=== PATIENT | female | born 1965 | race Caucasian/White ===

== ENCOUNTER 2021-11-10 17:29 | Inpatient (IN) | payer MEDICAID, OTHER ==
[~2021-11-10] VITALS: Ht 165.1 cm; Wt 68.3 kg
[2021-11-10] MEDS ORDERED: SODIUM CHLORIDE 0.9% 500 ML IV ONE (17:45)
[2021-11-10] MEDS ORDERED: ASPirin 325 MG TAB PO ONE (18:15)
[2021-11-10 18:22] LABS: Basophils # (auto) 0.1 10 ^3/uL (0-0.2); Basophils % (auto) 1.8 % (0.0-2.0); Eosinophils # (auto) 0.3 10 ^3/uL (0-0.8); Eosinophils % (auto) 3.8 % (0.0-7.0); Hematocrit 36.7 % (36.0-46.0); Lymphocytes # (auto) 2.9 10 ^3/uL (0.4-5.4); Lymphocytes % (auto) 42.2 % (10.0-50.0); Mean Corpuscular Hemoglobin 31.2 pg (28.0-32.0); Mean Corpuscular Hgb Conc. 35.4 g/dL (32.0-36.0); Mean Corpuscular Volume 88.1 fL (80.0-100.0); Monocytes # (auto) 0.3 10 ^3/uL (0-1.3); Monocytes % (auto) 4.9 % (0.0-12.0); Neutrophils # (auto) 3.2 10 ^3/uL (1.6-8.6); Neutrophils % (auto) 47.3 % (37.0-80.0); Nucleated Red Blood Cells % 0.1 %; Red Blood Cells 4.17 10^6/uL (4.0-5.20); Red Cell Distribution Width 13.6 % (11.8-14.3); White Blood Cell 6.8 10^3/uL (4.4-10.8)
[2021-11-10] MEDS ORDERED: NITROGLYCERIN 0.4 MG SL TAB SL ONE (18:33)
[2021-11-10 18:46] LABS: Albumin 3.6 g/dL (3.4-5.0); Calcium 8.5 mg/dL (8.5-10.1); Potassium 3.5 mmol/L (3.5-5.1)
[2021-11-10 18:50] LABS: BUN/Creatinine Ratio 13.5; Bilirubin, Total 0.4 mg/dL (0.2-1.0); Total Protein 7.5 g/dL (6.4-8.2)
[2021-11-10 19:06] LABS: Urine Bacteria NONE SEEN /hpf (None Seen); Urine Blood Negative /uL (Negative); Urine Specific Gravity 1.002 (1.001-1.035); Urine WBC 4 /hpf (0 - 5)
[2021-11-10] MEDS ORDERED: NITROGLYCERIN 0.4 MG SL TAB SL PRN (21:30)
[2021-11-10] MEDS ORDERED: MORPHINE SULFATE INJ 2 MG/ml SYRG IV PRN ×2 (21:30)
[2021-11-10] MEDS ORDERED: ONDANSETRON HCL 4 MG/2 ML VIAL IV PRN (21:30)
[2021-11-10] MEDS ORDERED: DOCUSATE SOD 100 MG CAP PO PRN (21:30)
[2021-11-10] MEDS ORDERED: ACETAMINOPHEN 325 MG TAB PO PRN (21:30)
[2021-11-10] MEDS: ASCORBIC ACID 500 MG TAB PO SCH (22:00)
[2021-11-10 23:50] VITALS: BP 140/62
[2021-11-10 23:55] VITALS: BP 140/62
[2021-11-11 05:00] VITALS: BP 114/46
[2021-11-11 05:53] LABS: Albumin 3.4 g/dL (3.4-5.0); BUN/Creatinine Ratio 17.2; Calcium 8.7 mg/dL (8.5-10.1); Potassium 3.7 mmol/L (3.5-5.1)
[2021-11-11 05:55] LABS: Basophils # (auto) 0 10 ^3/uL (0-0.2); Basophils % (auto) 0.4 % (0.0-2.0); Eosinophils # (auto) 0.3 10 ^3/uL (0-0.8); Eosinophils % (auto) 5.1 % (0.0-7.0); Hematocrit 35.8 % (36.0-46.0); Hemoglobin 12.5 g/dL (12.2-16.2); Lymphocytes # (auto) 2.5 10 ^3/uL (0.4-5.4); Lymphocytes % (auto) 41.5 % (10.0-50.0); Mean Corpuscular Hemoglobin 30.7 pg (28.0-32.0); Mean Corpuscular Hgb Conc. 34.9 g/dL (32.0-36.0); Mean Corpuscular Volume 88.2 fL (80.0-100.0); Monocytes # (auto) 0.5 10 ^3/uL (0-1.3); Monocytes % (auto) 8.4 % (0.0-12.0); Neutrophils # (auto) 2.7 10 ^3/uL (1.6-8.6); Neutrophils % (auto) 44.6 % (37.0-80.0); Nucleated Red Blood Cells % 0.1 %; Red Blood Cells 4.05 10^6/uL (4.0-5.20); Red Cell Distribution Width 13.7 % (11.8-14.3)
[2021-11-11 06:04] LABS: Bilirubin, Total 0.5 mg/dL (0.2-1.0); Total Protein 6.6 g/dL (6.4-8.2)
[2021-11-11] MEDS ORDERED: ADENOSINE 57 MG in GIVE UN-DILUTED 0 ML IV ONE (08:45)
[2021-11-11 09:00] VITALS: BP 119/44
[2021-11-11 09:07] LABS: Amphetamine Screen, Urine NEGATIVE (NEGATIVE); Barbiturate Scree,Urine NEGATIVE (NEGATIVE); Benzodiazephine Screen, Urine NEGATIVE (NEGATIVE); Cannabinoid Screen, Urine NEGATIVE (NEGATIVE); Cocaine Screen, Urine NEGATIVE (NEGATIVE); Opiate Scree,Urine NEGATIVE (NEGATIVE); Phencyclidine Screen, Urine NEGATIVE (NEGATIVE)
[2021-11-11] MEDS: MULTIPLE VITAMIN TAB PO SCH (09:30)
[2021-11-11] MEDS: ENOXAPARIN SOD 40 MG/0.4 ML SYRINGE SC SCH (09:30)
[2021-11-11] MEDS: ZINC SULFATE 220mg CAP or TAB PO SCH (09:30)
[2021-11-11] MEDS: ASCORBIC ACID 500 MG TAB PO SCH ×2 (09:30→21:23)
[2021-11-11] MEDS ORDERED: NITROGLYCERIN 0.4 MG SL TAB SL ONE (10:00)
[2021-11-11 13:00] VITALS: BP 122/52
[2021-11-11] MEDS: cefTRIAXone 1GM/50ML D5W 50 ML IV SCH (13:15)
[2021-11-11] MEDS: SODIUM CHLORIDE 0.9% 1,000 ML IV SCH ×2 (13:50→17:45)
[2021-11-11 17:00] VITALS: BP 129/78
[2021-11-11] MEDS: HYDROcodone-ACET 5/325MG TAB PO PRN (21:23)
[2021-11-11 21:45] VITALS: BP 157/82
[2021-11-12] MEDS: SODIUM CHLORIDE 0.9% 1,000 ML IV SCH ×2 (01:48→17:36)
[2021-11-12 04:44] VITALS: BP 123/80
[2021-11-12 09:00] VITALS: BP 115/65
[2021-11-12] MEDS: cefTRIAXone 1GM/50ML D5W 50 ML IV SCH (09:08)
[2021-11-12] MEDS: ZINC SULFATE 220mg CAP or TAB PO SCH (09:08)
[2021-11-12] MEDS: ENOXAPARIN SOD 40 MG/0.4 ML SYRINGE SC SCH (09:09)
[2021-11-12] MEDS: ASCORBIC ACID 500 MG TAB PO SCH ×2 (09:09→22:01)
[2021-11-12] MEDS: MULTIPLE VITAMIN TAB PO SCH (09:09)
[2021-11-12] MEDS: HYDROcodone-ACET 5/325MG TAB PO PRN ×3 (09:21→17:31)
[2021-11-12] MEDS ORDERED: LORazepam 2MG/ML-1ML VIAL IV ONE (11:00)
[2021-11-12 13:00] VITALS: BP 129/60
[2021-11-12 17:05] VITALS: BP 124/69
[2021-11-12] MEDS: LORazepam 2MG/ML-1ML VIAL IV PRN (18:15)
[2021-11-12 22:00] VITALS: BP 117/75
[2021-11-13] MEDS: HYDROcodone-ACET 5/325MG TAB PO PRN ×3 (01:46→22:41)
[2021-11-13] MEDS: SODIUM CHLORIDE 0.9% 1,000 ML IV SCH ×3 (01:58→17:41)
[2021-11-13 05:00] VITALS: BP 101/62
[2021-11-13 09:00] VITALS: BP 112/66
[2021-11-13] MEDS: MULTIPLE VITAMIN TAB PO SCH (09:19)
[2021-11-13] MEDS: cefTRIAXone 1GM/50ML D5W 50 ML IV SCH (09:19)
[2021-11-13] MEDS: ASCORBIC ACID 500 MG TAB PO SCH ×2 (09:19→22:40)
[2021-11-13] MEDS: ZINC SULFATE 220mg CAP or TAB PO SCH (09:19)
[2021-11-13] MEDS: ENOXAPARIN SOD 40 MG/0.4 ML SYRINGE SC SCH (09:20)
[2021-11-13 13:00] VITALS: BP 128/47
[2021-11-13] MEDS: LORazepam 2MG/ML-1ML VIAL IV PRN ×2 (14:24→22:41)
[2021-11-13 16:51] VITALS: BP 92/42
[2021-11-13 22:00] VITALS: BP 132/57
[2021-11-14] VITALS (8 sets, daily range): BP systolic 104–130; BP diastolic 38–84
[2021-11-14] MEDS: SODIUM CHLORIDE 0.9% 1,000 ML IV SCH ×3 (02:50→17:45)
[2021-11-14 07:09] LABS: Basophils # (auto) 0 10 ^3/uL (0-0.2); Basophils % (auto) 0.4 % (0.0-2.0); Eosinophils # (auto) 0.4 10 ^3/uL (0-0.8); Eosinophils % (auto) 6.4 % (0.0-7.0); Hematocrit 36.5 % (36.0-46.0); Lymphocytes # (auto) 2.3 10 ^3/uL (0.4-5.4); Mean Corpuscular Hgb Conc. 35.6 g/dL (32.0-36.0); Mean Corpuscular Volume 87.1 fL (80.0-100.0); Monocytes # (auto) 0.4 10 ^3/uL (0-1.3); Neutrophils # (auto) 2.5 10 ^3/uL (1.6-8.6); Neutrophils % (auto) 45.2 % (37.0-80.0); Nucleated Red Blood Cells % 0.1 %; Red Blood Cells 4.19 10^6/uL (4.0-5.20); Red Cell Distribution Width 13.6 % (11.8-14.3); White Blood Cell 5.6 10^3/uL (4.4-10.8)
[2021-11-14 07:32] LABS: INR 1.02 (0.9-1.15); Partial Thromboplastin Time 28.8 sec (23.6-33.0)
[2021-11-14 07:41] LABS: Calcium 8.8 mg/dL (8.5-10.1); Potassium 3.9 mmol/L (3.5-5.1)
[2021-11-14 07:44] LABS: BUN/Creatinine Ratio 25.4
[2021-11-14] MEDS: cefTRIAXone 1GM/50ML D5W 50 ML IV SCH (09:00)
[2021-11-14] MEDS ORDERED: IODIXANOL 320MG/ML 100ML BTL IV ONE (09:38)
[2021-11-14] MEDS ORDERED: LIDOCAINE 2%HCL (LOCAL ANESTH.) INJ 10ml MDV ONE (09:38)
[2021-11-14] MEDS ORDERED: HEPARIN SODIUM (PORCINE) 5000 UNITS/ML 1ML VIAL ONE (09:43)
[2021-11-14] MEDS ORDERED: ANGIOMAX 250 MG VIAL IV ONE (09:43)
[2021-11-14] MEDS ORDERED: MIDAZOLAM HCL 2MG/2ML 2ml VIAL (1mg/ml) ONE (09:44)
[2021-11-14] MEDS ORDERED: VERAPAMIL 2.5MG/ML INJ 2ML VIAL IV ONE (09:44)
[2021-11-14] MEDS ORDERED: fentaNYL CITRATE 100 MCG/2 ML VL ONE (09:44)
[2021-11-14] MEDS ORDERED: SODIUM CHL 0.9% 0 ML ONE (09:44)
[2021-11-14] MEDS: ENOXAPARIN SOD 40 MG/0.4 ML SYRINGE SC SCH (10:00)
[2021-11-14] MEDS: MULTIPLE VITAMIN TAB PO SCH (10:00)
[2021-11-14] MEDS: ZINC SULFATE 220mg CAP or TAB PO SCH (10:00)
[2021-11-14] MEDS: ASCORBIC ACID 500 MG TAB PO SCH ×2 (10:00→21:31)
[2021-11-14] MEDS ORDERED: diphenhdrAMINE HCL 50 MG/1 ML VL ONE (10:37)
[2021-11-14] MEDS: SODIUM CHLOR 0.9% PF (SALINE LOCK) 10ML VIAL/SYR IV SCH ×2 (14:00→21:31)
[2021-11-14] MEDS ORDERED: KETOROLAC TROMETH 30 MG/ML 1ML VIAL IV ONE (15:15)
[2021-11-14] MEDS ORDERED: PROMETHAZINE HCL 25 MG/ML 1ML IV ONE (16:15)
[2021-11-14] MEDS: LORazepam 2MG/ML-1ML VIAL IV PRN (20:15)
[2021-11-14] MEDS: RANOLAZINE ER 500 MG TAB PO SCH (21:31)
[2021-11-15] MEDS: SODIUM CHLORIDE 0.9% 1,000 ML IV SCH ×3 (03:14→17:45)
[2021-11-15 05:00] VITALS: BP 107/65
[2021-11-15] MEDS: SODIUM CHLOR 0.9% PF (SALINE LOCK) 10ML VIAL/SYR IV SCH ×2 (06:00→14:00)
[2021-11-15 09:00] VITALS: BP 114/52
[2021-11-15] MEDS ORDERED: SIMV-8 PO (09:56)
[2021-11-15] MEDS ORDERED: ISO20T PO (09:59)
[2021-11-15] MEDS ORDERED: ALPR0.25 PO (09:59)
[2021-11-15] MEDS ORDERED: HYDR-4902 PO (09:59)
[2021-11-15] MEDS ORDERED: ISOSORBIDE MONONITRATE 20 MG TAB PO SCH (10:00)
[2021-11-15] MEDS: RANOLAZINE ER 500 MG TAB PO SCH (11:08)
[2021-11-15] MEDS: ZINC SULFATE 220mg CAP or TAB PO SCH (11:08)
[2021-11-15] MEDS: MULTIPLE VITAMIN TAB PO SCH (11:08)
[2021-11-15] MEDS: cefTRIAXone 1GM/50ML D5W 50 ML IV SCH (11:08)
[2021-11-15] MEDS: ENOXAPARIN SOD 40 MG/0.4 ML SYRINGE SC SCH (11:09)
[2021-11-15] MEDS: ASCORBIC ACID 500 MG TAB PO SCH (11:09)
[2021-11-15 12:54] VITALS: BP 99/54
[2021-11-15] MEDS: LORazepam 2MG/ML-1ML VIAL IV PRN (14:10)
[2021-11-15 17:00] VITALS: BP 95/47
[2021-11-15 19:24] VITALS: BP 110/63
[2021-11-15 20:30] VITALS: BP 108/64
== END 2021-11-15 20:55 | disposition home or self-care (01) | DRG 191 ==
LOC: ER 17:29 → EDBD 17:29 → TELE 21:24 → TELE-CENTR 23:19 → OBSVTOIN 11-11 10:43
PROVIDERS: ADMIT Internal Medicine; ATTEND Internal Medicine
PROC: 4A023N7 Measurement of Cardiac Sampling and Pressure, Left Heart, Percutaneous Approach (ICD-10-PCS; principal; 2021-11-14)
PROC: B211YZZ Fluoroscopy of Multiple Coronary Arteries using Other Contrast (ICD-10-PCS; 2021-11-14)
PROC: B215YZZ Fluoroscopy of Left Heart using Other Contrast (ICD-10-PCS; 2021-11-14)
DX: I20.1 Angina pectoris with documented spasm (principal); I11.0 Hypertensive heart disease with heart failure; I50.32 Chronic diastolic (congestive) heart failure; E78.5 Hyperlipidemia, unspecified; N39.0 Urinary tract infection, site not specified; F10.129 Alcohol abuse with intoxication, unspecified; Z20.822 Contact with and (suspected) exposure to COVID-19; G89.29 Other chronic pain; F17.210 Nicotine dependence, cigarettes, uncomplicated; Z88.0 Allergy status to penicillin; Z95.0 Presence of cardiac pacemaker; Z91.19 Patient's noncompliance with other medical treatment and regimen; Z88.8 Allergy status to other drugs, medicaments and biological substances
CPT/HCPCS: 36415; 71045; 78452; 80048; 80053; 80307; 81001; 83735; 83880; 84443; 84484; 85025; 85610; 85730; 93005; 93017; 93306; 93458; 96360; 99152; 99153; G0378; J0153; J0696; J2001; J2250; J2405; Q9967